=== PATIENT | male | born 1995 | race Caucasian/White ===

== ENCOUNTER 2020-03-10 09:24 | Emergency (ER) | payer OTHER ==
[~2020-03-10 09:24] MED LIST: AUGMENTIN 875-1 EACH PO; CILOXAN 0.3% O2.5 ML OU; FLONASE 0.05% N16 GM; IBUPROFEN600 MG PO; TESSALON PERLE100 MG PO; ZYRTEC10 M3 PO
[2020-03-10] MEDS ORDERED: BENTYL 20MG TAB20 MG PO (09:55)
[2020-03-10] MEDS ORDERED: ZOFRAN4 MG PO (09:55)
== END 2020-03-10 10:05 | disposition home or self-care (01) ==
LOC: ER1 09:24
DX: R11.2 Nausea with vomiting, unspecified (principal); R19.7 Diarrhea, unspecified; Z20.822 Contact with and (suspected) exposure to COVID-19
CPT/HCPCS: 99284; U0003